=== PATIENT | female | born 1970 | race American Indian/Alaskan Native ===

== ENCOUNTER 2017-01-20 14:29 | Outpatient (CLI) | payer BC ==
[2017-01-20 15:34] LABS: Blood Urea Nitrogen 13 mg/dL (7-17)
--- NOTE | 2017-01-25 18:51 | Magnetic Resonance Report ---
MR scan of the cranium was performed with and without contrast. Pulse sequences included: 1. T1 weighted sagittal and axial images without contrast and T1 axial and coronal images with contrast 2. T2 weighted axial and coronal images 3. FLAIR axial images 4. Diffusion-weighted axial images 5. Apparent diffusion coefficient images Views of the posterior fossa showed a normal craniocervical junction. Cerebellar pontine angles were normal with normal seventh-eighth nerve complexes. Brainstem and cerebellum were normal. The ventricular system showed no dilatation or distortion. Images of the hemispheres showed no areas of increased or decreased signal. Sinuses, pituitary, flow voids in the [place], orbits, and basal ganglia were normal. There are no abnormal areas of enhancement with contrast. Impression: Normal MR scan of the cranium with and without contrast
== END 2017-01-20 14:30 | disposition home or self-care (01) ==
LOC: MRI 14:29
PROVIDERS: ATTEND Specialist
DX: H83.09 Labyrinthitis, unspecified ear (principal); I10 Essential (primary) hypertension; R42 Dizziness and giddiness; M54.9 Dorsalgia, unspecified; M79.604 Pain in right leg; M79.605 Pain in left leg; R53.1 Weakness
CPT/HCPCS: 36415; 70553; 82565; 84520; A9577